=== PATIENT | male | born 1965 | race African-American/Black ===

== ENCOUNTER 2018-12-14 13:05 | Inpatient (IN) | payer OTHER ==
[~2018-12-14] VITALS: Ht 195.6 cm; Wt 123.0 kg
[2018-12-14] VITALS (19 sets, daily range): BP systolic 110–152; BP diastolic 71–92
--- NOTE | 2018-12-14 13:17 | PHYS DOC ---
Adult General HPI HPI Patient is a 53 year old [f__sex] who presents with [] Review of Systems Review of Systems Constitutional: Denies fever or chills [] Eyes: Denies change in visual acuity, redness, or eye pain [] HENT: Denies nasal congestion or sore throat [] Respiratory: Denies cough or shortness of breath [] Cardiovascular: No additional information not addressed in HPI [] GI: Denies abdominal pain, nausea, vomiting, bloody stools or diarrhea [] : Denies dysuria or hematuria [] Musculoskeletal: Denies back pain or joint pain [] Integument: Denies rash or skin lesions [] Neurologic: Denies headache, focal weakness or sensory changes [] Endocrine: Denies polyuria or polydipsia [] All other systems were reviewed and found to be within normal limits, except as documented in this note. Physical Exam Physical Exam Constitutional: Well developed, well nourished, no acute distress, non-toxic appearance. [] HENT: Normocephalic, atraumatic, bilateral external ears normal, oropharynx moist, no oral exudates, nose normal. [] Eyes: PERRLA, EOMI, conjunctiva normal, no discharge. [] Neck: Normal range of motion, no tenderness, supple, no stridor. [] Cardiovascular:Heart rate regular rhythm, no murmur [] Lungs & Thorax: Bilateral breath sounds clear to auscultation [] Abdomen: Bowel sounds normal, soft, no tenderness, no masses, no pulsatile masses. [] Skin: Warm, dry, no erythema, no rash. [] Back: No tenderness, no CVA tenderness. [] Extremities: No tenderness, no cyanosis, no clubbing, ROM intact, no edema. [] Neurologic: Alert and oriented X 3, normal motor function, normal sensory function, no focal deficits noted. [] Psychologic: Affect normal, judgement normal, mood normal. [] Current Patient Data Vital Signs Vital Signs Date Time Temp Pulse Resp B/P (MAP) Pulse Ox O2 Delivery O2 Flow Rate FiO2 12/14/18 13:05 97.8 106 18 195/105 (135) 100 Room Air 97.8 Lab Values Laboratory Tests Test 12/14/18 13:10 White Blood Count 6.1 x10^3/uL (4.0-11.0) Red Blood Count 5.20 x10^6/uL (4.30-5.70) Hemoglobin 15.4 g/dL (13.0-17.5) Hematocrit 46.0 % (39.0-53.0) Mean Corpuscular Volume 89 fL (79-100) Mean Corpuscular Hemoglobin 30 pg (25-35) Mean Corpuscular Hemoglobin Concent 33 g/dL (31-37) Red Cell Distribution Width 14.4 % (11.5-14.5) Platelet Count 189 x10^3/uL (140-400) Neutrophils (%) (Auto) 46 % (31-73) Lymphocytes (%) (Auto) 46 % (24-48) Monocytes (%) (Auto) 7 % (0-9) Eosinophils (%) (Auto) 1 % (0-3) Basophils (%) (Auto) 0 % (0-3) Neutrophils # (Auto) 2.8 x10^3uL (1.8-7.7) Lymphocytes # (Auto) 2.8 x10^3/uL (1.0-4.8) Monocytes # (Auto) 0.4 x10^3/uL (0.0-1.1) Eosinophils # (Auto) 0.1 x10^3/uL (0.0-0.7) Basophils # (Auto) 0.0 x10^3/uL (0.0-0.2) Prothrombin Time 12.6 SEC (11.7-14.0) Prothrombin Time INR 1.0 (0.8-1.1) Sodium Level 145 mmol/L (136-145) Potassium Level 3.4 mmol/L (3.5-5.1) L Chloride Level 103 mmol/L (98-107) Carbon Dioxide Level 30 mmol/L (21-32) Anion Gap 12 (6-14) Blood Urea Nitrogen 20 mg/dL (8-26) Creatinine 1.3 mg/dL (0.7-1.3) Estimated GFR (Cockcroft-Gault) 69.3 BUN/Creatinine Ratio 15 (6-20) Glucose Level 214 mg/dL (70-99) H Calcium Level 9.2 mg/dL (8.5-10.1) Magnesium Level 2.2 mg/dL (1.8-2.4) Total Bilirubin 0.6 mg/dL (0.2-1.0) Aspartate Amino Transferase (AST) 21 U/L (15-37) Alanine Aminotransferase (ALT) 35 U/L (16-63) Alkaline Phosphatase 96 U/L (46-116) Total Protein 7.8 g/dL (6.4-8.2) Albumin 4.0 g/dL (3.4-5.0) Albumin/Globulin Ratio 1.1 (1.0-1.7) Laboratory Tests 12/14/18 13:10 Laboratory Tests 12/14/18 13:10 EKG EKG Dictated by me. EKG at 1306 showed sinus tachycardia at rate of 1:15, normal RI and QT intervals, left anterior fascicular block, left atrial abnormalities, left axis deviation, incomplete right bundle branch block, acute ST elevation in anterior leads,acute STEMI Radiology/Procedures Radiology/Procedures [] Course & Med Decision Making Course & Med Decision Making Pertinent Labs and Imaging studies reviewed. (See chart for details) [] Dragon Disclaimer Dragon Disclaimer This electronic medical record was generated, in whole or in part, using a voice recognition dictation system. Departure Departure Impression: Primary Impression: STEMI (ST elevation myocardial infarction) Disposition: 09 ADMITTED INPATIENT (At 1311) Admitting Physician: Anderson Turner (accepted admission at 1316) Condition: GUARDED Critical Care Time Critical care time was 35 minutes exclusive of procedures. DAE HUSTON MD Dec 14, 2018 13:17
[2018-12-14] MEDS ORDERED: MIDAZOLAM HCL/PF 2 MG/2 ML VIAL. ONE (13:22)
[2018-12-14 13:24] LABS: BASO % 0 % (0-3); EOS # 0.1 x10^3/uL (0.0-0.7); EOS % 1 % (0-3); HEMOGLOBIN 15.4 g/dL (13.0-17.5); LYMPH # 2.8 x10^3/uL (1.0-4.8); LYMPH % 46 % (24-48); MEAN CORPUSCULAR HEMOGLOBIN 30 pg (25-35); MEAN CORPUSCULAR HGB CONC 33 g/dL (31-37); MEAN CORPUSCULAR VOLUME 89 fL (79-100); MONO # 0.4 x10^3/uL (0.0-1.1); MONO % 7 % (0-9); NEUT # 2.8 x10^3uL (1.8-7.7); NEUT % 46 % (31-73); PLATELET COUNT 189 x10^3/uL (140-400); RED CELL DISTRIBUTION WIDTH 14.4 % (11.5-14.5); WHITE BLOOD COUNT 6.1 x10^3/uL (4.0-11.0)
[2018-12-14] MEDS ORDERED: HEPARIN for IV BOLUS 10,000 UNIT/10 ML VIAL. IV ONE (13:24)
[2018-12-14 13:29] LABS: CALCIUM 9.2 mg/dL (8.5-10.1); CREATININE 1.3 mg/dL (0.7-1.3); GFR 69.3; POTASSIUM 3.4 mmol/L (3.5-5.1)
[2018-12-14 13:32] LABS: PROTHROMBIN TIME PATIENT 12.6 SEC (11.7-14.0)
[2018-12-14] MEDS ORDERED: TIROFIBAN 5MG -0.9% NS 100 ML IV ONE (13:34)
[2018-12-14 13:35] LABS: ALBUMIN/GLOBULIN RATIO 1.1 (1.0-1.7); MAGNESIUM 2.2 mg/dL (1.8-2.4); TOTAL BILIRUBIN 0.6 mg/dL (0.2-1.0); TOTAL PROTEIN 7.8 g/dL (6.4-8.2)
[2018-12-14] MEDS ORDERED: MIDAZOLAM HCL/PF 2 MG/2 ML VIAL. IV ONE (13:45)
[2018-12-14] MEDS ORDERED: fentaNYL PF VIAL 100 MCG/2 ML VIAL IV ONE (13:45)
[2018-12-14] MEDS ORDERED: LIDOCAINE 1% Multi-Dose 20 ML VIAL. INJ ONE (13:45)
[2018-12-14] MEDS ORDERED: NITROGLYCERIN 200 MCG/2 ML SYRINGE FOR CATH/VASC LAB. IART ONE (13:45)
[2018-12-14] MEDS ORDERED: IODIXANOL 320 MG/ML 100 ML VIAL. IART ONE (13:45)
[2018-12-14] MEDS ORDERED: PRASUGREL 10 MG TABLET. ONE ×2 (13:49)
[2018-12-14] MEDS ORDERED: PRASUGREL 10 MG TABLET. PO ONE (14:00)
--- NOTE | 2018-12-14 14:00 | EKG ---
[facility] [address] [place] [address] Test Date: 2018-12-14 Test Time: 13:06:42 Pat Name: REMY NEGRETE Department: Room: 102 1 Gender: M Corporate Operations Compliance Manager: : [id number] Requested By: DAE HUSTON Order Number: [id number] Reading MD: Damion Bocanegra MD Measurements Intervals Bee Rate: 115 P: 74 AR: 148 QRS: -33 QRSD: 102 T: 23 QT: 344 QTc: 478 Interpretive Statements SINUS TACHYCARDIA ANTEROLATERAL STEMI Electronically Signed On 12-15-2018 7:04:21 NANOSYSTEMS ENGINEER by Damion Bocanegra MD
[2018-12-14] MEDS: TIROFIBAN 5MG -0.9% NS 100 ML IV PRN ×2 (14:17→15:43)
[2018-12-14] MEDS ORDERED: IODIXANOL 320 MG/ML 100 ML VIAL. ONE (14:42)
[2018-12-14] MEDS ORDERED: LIDOCAINE 1% Multi-Dose 20 ML VIAL. ONE (14:42)
[2018-12-14] MEDS ORDERED: CONTRAST GIVEN. MC PRN (14:45)
--- NOTE | 2018-12-14 14:47 | CARD ---
MR#: [id number] Date of Study: 12/14/2018 Ordering Physician: DAE HUSTON, Referring Physician: AD BENNETT Tech: RT Alpesh (R) APPROVED REPORT Technologist: RT Alpesh (R) Nurse: Meg Braxton R.N. Procedure(s) performed: moderate sedation:67 minutes heart failure: Class 4 HISTORY : The patient is a 53 year-old male with a history of . INDICATION The indication(s) include : STEMI (>0 to less than or equal to 6 hours). [facility] Clinical Frailty Scale [facility] Clinical Frailty Scale: Very Fit Heart Failure Heart Failure: Yes If Yes, Newly Diagnosed: Yes If Yes, HF Type: Systolic If Yes, NYHA Class: Class III PROCEDURE NARRATIVE After explaining the risks and benefits of the procedure and alternatives, informed consent was obtai lenin. The patient was brought electively to the cardiac catheterization lab in a fasting state. A rebel eout was performed confirming the patient's name, date of , procedure, and site of procedure. A ll necessary personnel were wearing the appropriate protective equipment and radiation monitor device s. (See nursing notes for medications administered). The right groin was sterilely prepped and drap ed in the usual fashion. The right groin was infiltrated with 10 mL of 2% lidocaine for subcutaneous anesthesia. A 6 F sheath was inserted into the right femoral artery without difficulty. Right and left coronary angiography was performed using a JR4 and JL4 catheter. Left ventricular end diastolic pressure was obtained with a pigtail catheter and pullback was performed after left ventriculography . All catheter exchanges and advancements were performed over a guidewire. At case completion the r ight femoral sheath was removed and hemostasis was achieved with an Angioseal Device after limited fe moral angiography confirmed adequate vessel size and anatomy. There were no acute complications. HEMODYNAMICS: AO: 177/83 LVEDP 21 mm Hg No gradient on LV to aortic pullback. LEFT VENTRICULOGRAM: Deferred due to contrast load. CORONARY ANGIOGRAPHY: LM is a large caliber ectactic vessel with normal angiographic appearance. LAD is a large caliber vessel with proximal 40-50% stenosis, followed by a 100% occlusion at the 1st diagonal in the mid segment. Ramus is a moderate caliber ostially bifuracting vessel with mild luminal irregularities. LCx is a moderate caliber non-dominant vessel with a mid 90% stenosis extending into the LPL1 RCA is a large caliber dominant vessel with mild diffuse irregularities of up to 30% RPDA is a moderate caliber vessels with mild luminal irregularities. INTERVENTIONAL TECHNIQUE: PCI of the LAD Based upon the EKG, presenting symptoms and angiographic findings an interevntion was performed. Hepa rin/Tirofiban were used for anticoagulation. Through a 6fr EBU 4.0 guide catheter, 0.014'' Prowater w tobias was advanced to the distal LAD. Next, PTCA was performed with a 3.0/15 balloon and then stented w ith a 4.0/26 ALVARO at 14 dana. Final post-PCI angiography revealed ALEAH 3 flow and 0% residual stenosis. INTERVENTIONAL TECHNIQUE: PCI OF THE LCX Due to persistent lateral wall EKG changes, an intervention was also performed on the Lcx. The prowat er wire was redirected to the LPL1, the lesion was angioplasted with a 4.0/20 mm balloon and then christianne nted with a 4.0/22 ALVARO at 14 dana and post-dilated with 4.0 NC balloon at 18 dana. Final post-PCI angio graphy demonstrated excellent stent expansion with ALEAH 3 flow and 0% residual stenosis. CLOSURE: The groin sheath was removed and hemostasis was achieved with an Angioseal device after limited angio gram confirmed adequate sheath entry. The patient received Prasugrel 60mg at case completion. Conclusion 1. Anterolateral STEMI 2. Successful PCI of the LAD with implantation of a 4.0/26 Resolute ALVARO 3. Successful PCI of the LCx with implantation of a 4.0/22 Resolute ALVARO 4. Elevated left sided filling pressures. LVEDP 21 mm Hg. Recommendations ASA 81mg daily Prasugrel 10mg daily High dose statin therapy Cardiac rehab referral Signed by : Damion Bocanegra, Electronically Approved : 12/14/2018 14:47:12
[2018-12-14] MEDS ORDERED: HYDR-2145 PO (15:16)
--- NOTE | 2018-12-14 15:44 | NUR ---
Aggrastat and Effient given in laboratory asst prior to patient transfer to ICU
--- NOTE | 2018-12-14 15:45 | HP ---
ADMIT DATE: 12/14/2018 CHIEF COMPLAINT: Chest pain. HISTORY OF PRESENT ILLNESS: The patient is a pleasant middle-aged male, who presented to the ER with chest pain. He was in STEMI activation. He was taken emergently to the assistant laboratory director and now has gotten 2 stents, one to the LAD and one to the circumflex. He is now being examined in the ICU where he is doing a little bit better. Rates his symptoms prior to the procedure at 10/10, describes it as agonizing. His pain is now much decreased. He is doing much better. PAST MEDICAL HISTORY: Hypertension, possible noncompliance. ALLERGIES: None. FAMILY HISTORY: Coronary artery disease. SOCIAL HISTORY: He works at [employer]. He smokes cigars, but does not drink or take drugs. He is trying to quit smoking. MEDICATIONS: Reviewed, please refer to the MRAD. REVIEW OF SYSTEMS: GENERAL: No history of weight change, weakness or fevers. SKIN: No bruising, hair changes or rashes. EYES: No blurred, double or loss of vision. NOSE AND THROAT: No history of nosebleeds, hoarseness or sore throat. HEART: He complains of chest pain, although it is improved after the cath. LUNGS: Denies cough, hemoptysis, wheezing or shortness of breath. GASTROINTESTINAL: Denies changes in appetite, nausea, vomiting, diarrhea or constipation. GENITOURINARY: No history of frequency, urgency, hesitancy or nocturia. NEUROLOGIC: Denies history of numbness, tingling, tremor or weakness. PSYCHIATRIC: No history of panic, anxiety or depression. ENDOCRINE: No history of heat or cold intolerance, polyuria or polydipsia. EXTREMITIES: Denies muscle weakness, joint pain, pain on walking or stiffness. PHYSICAL EXAMINATION: VITAL SIGNS: Temperature 98, pulse 80, respirations 16, blood pressure 144/80, O2 sat 99% on room air. GENERAL: He is alert, cooperative. HEART: Normal S1, S2. LUNGS: Clear. ABDOMEN: Soft. EXTREMITIES: No edema. SKIN: No rash. ENDOCRINE: No thyromegaly. LYMPHATICS: No cervical nodes. HEMATOPOIETIC: No bruising. LABORATORY DATA: Hematology is normal. Electrolytes, potassium is low at 3.4. Troponin was 0.081. ASSESSMENT AND PLAN: Acute myocardial infarction, status post intervention with 2 new stents and an incidental finding of hypokalemia, we have replaced his potassium. ICU monitoring, trend enzymes, serial EKGs. We have Cardiology on board. We certainly agree and appreciate the rapid intervention. PROGNOSIS: Guarded. TOTAL TIME: 31 minutes. AD BENNETT DO DR: JERRI/sarah JOB#: [id number] / [id number]
--- NOTE | 2018-12-14 16:12 | PDOC2 ---
CARDIOLOGY CONSULT NOTE CHEIF COMPLAINT: Chest pain HPI: 53 y.o male presenting with acute chest pain. He was noted to have anterior STEMI and taken urgently to the manager cardiac cath. See cath report for full details. Prior to this he was working at [employer] and had no problems. Denies any prior cardiac disease. PMHX: Prior rare cigar use HTN SOCHX: . Works at [employer]. FAMHX: +CAD CURRENT MEDS: Current Medications Medications (Trade) Dose Ordered Sig/Carlitos Start Time Stop Time Status Last Admin Dose Admin Fentanyl Citrate (Fentanyl 2ml Vial) 100 mcg 1X ONCE 12/14/18 13:45 12/14/18 13:50 DC 12/14/18 14:17 75 MCG Heparin Sodium (Porcine) (Heparin Sodium) 8,000 unit 1X ONCE 12/14/18 13:24 12/14/18 13:50 DC 12/14/18 14:19 8,000 UNIT Heparin Sodium/ Sodium Chloride 1,000 ml @ As Directed STK-MED ONCE 12/14/18 14:42 12/14/18 14:43 DC Heparin Sodium/ Sodium Chloride (HEPARIN for ARTERIAL LINE FLUSH) 1,000 unit 1X ONCE 12/14/18 13:45 12/14/18 13:50 DC 12/14/18 14:18 1,000 UNIT Info (CONTRAST GIVEN -- Rx MONITORING) 1 each PRN DAILY PRN 12/14/18 14:45 12/16/18 14:44 Iodixanol (Visipaque 320) 100 ml STK-MED ONCE 12/14/18 14:42 12/14/18 14:43 DC Lidocaine HCl (Lidocaine 1% 20ml Vial) 20 ml STK-MED ONCE 12/14/18 14:42 12/14/18 14:43 DC Midazolam HCl (Versed) 2 mg 1X ONCE 12/14/18 13:45 12/14/18 13:50 DC 12/14/18 14:17 3 MG Nitroglycerin (Nitroglycerin) 200 mcg 1X ONCE 12/14/18 13:45 12/14/18 13:50 DC 12/14/18 14:18 200 MCG Prasugrel (Effient) 60 mg 1X ONCE 12/14/18 14:00 12/14/18 14:01 DC 12/14/18 14:00 60 MG Tirofiban/Sodium Chloride 100 ml @ 0 mls/hr CONT PRN 12/14/18 13:38 12/15/18 07:37 12/14/18 14:17 21.3 MLS/HR ALLERGIES: Allergies Coded Allergies Type Severity Reaction Last Updated Verified No Known Drug Allergies 12/14/18 No ROS: Negative for 07/26 systems unless otherwise PHYSICAL EXAM: Vital Signs: Vital Signs Date Time Temp Pulse Resp B/P (MAP) Pulse Ox O2 Delivery O2 Flow Rate FiO2 12/14/18 14:40 98.4 84 16 144/80 (101) 99 Room Air 98.4 12/14/18 14:17 2.0 Physical Exam: GEN.: No apparent distress. Alert and oriented. HEENT: Head is normocephalic, atraumatic NECK: Supple. LUNGS: Clear to auscultation. HEART: RRR, S1, S2 present. Peripheral pulses intact ABDOMEN: Soft, nontender. Positive bowel sounds. EXTREMITIES: Without any cyanosis. NEUROLOGIC: Normal speech, normal tone PSYCHIATRIC: Normal affect, normal mood. SKIN: No ulcerations DIAGNOSTIC TESTING: EKG: Anterior STEMI Trop 0.081 Lab Laboratory Tests Test 12/14/18 13:10 White Blood Count 6.1 x10^3/uL (4.0-11.0) Red Blood Count 5.20 x10^6/uL (4.30-5.70) Hemoglobin 15.4 g/dL (13.0-17.5) Hematocrit 46.0 % (39.0-53.0) Mean Corpuscular Volume 89 fL (79-100) Mean Corpuscular Hemoglobin 30 pg (25-35) Mean Corpuscular Hemoglobin Concent 33 g/dL (31-37) Red Cell Distribution Width 14.4 % (11.5-14.5) Platelet Count 189 x10^3/uL (140-400) Neutrophils (%) (Auto) 46 % (31-73) Lymphocytes (%) (Auto) 46 % (24-48) Monocytes (%) (Auto) 7 % (0-9) Eosinophils (%) (Auto) 1 % (0-3) Basophils (%) (Auto) 0 % (0-3) Neutrophils # (Auto) 2.8 x10^3uL (1.8-7.7) Lymphocytes # (Auto) 2.8 x10^3/uL (1.0-4.8) Monocytes # (Auto) 0.4 x10^3/uL (0.0-1.1) Eosinophils # (Auto) 0.1 x10^3/uL (0.0-0.7) Basophils # (Auto) 0.0 x10^3/uL (0.0-0.2) Prothrombin Time 12.6 SEC (11.7-14.0) Prothromb Time International Ratio 1.0 (0.8-1.1) Sodium Level 145 mmol/L (136-145) Potassium Level 3.4 mmol/L (3.5-5.1) L Chloride Level 103 mmol/L (98-107) Carbon Dioxide Level 30 mmol/L (21-32) Anion Gap 12 (6-14) Blood Urea Nitrogen 20 mg/dL (8-26) Creatinine 1.3 mg/dL (0.7-1.3) Estimated GFR (Cockcroft-Gault) 69.3 BUN/Creatinine Ratio 15 (6-20) Glucose Level 214 mg/dL (70-99) H Calcium Level 9.2 mg/dL (8.5-10.1) Total Bilirubin 0.6 mg/dL (0.2-1.0) Aspartate Amino Transf (AST/SGOT) 21 U/L (15-37) Alkaline Phosphatase 96 U/L (46-116) Creatine Kinase 364 U/L (39-308) H Creatine Kinase MB (Mass) 6.3 ng/mL (0.0-3.6) H Creatine Kinase MB Relative Index 1.7 % (0-4) Total Protein 7.8 g/dL (6.4-8.2) Albumin 4.0 g/dL (3.4-5.0) Albumin/Globulin Ratio 1.1 (1.0-1.7) ASSESSMENT: 1. Anterior STEMI 2. HTN PLAN: 1. PCI of the LAD and LCx successful 2. Continue asa, prasugrel 3. Check lipids, echo and continue statin therapy KENN SALMON MD Dec 14, 2018 16:12
[2018-12-14] MEDS ORDERED: IPRATRPIUM/ALBUTEROL 0.5/2.5MG 3 ML NEBU. NEB SCH (17:00)
[2018-12-14] MEDS ORDERED: AMLO5TAB10 PO (19:18)
[2018-12-14] MEDS: IPRATRPIUM/ALBUTEROL 0.5/2.5MG 3 ML NEBU. NEB SCH (19:52)
[2018-12-14] MEDS: ATORVASTATIN CALCIUM 40 MG TABLET. PO SCH (20:43)
--- NOTE | 2018-12-14 23:27 | RAD ---
PORTABLE CHEST 1V History: Chest pain Comparison: None. Findings: AP portable view of the chest is submitted. There is no infiltrate, pleural fluid, pneumothorax. Heart size is within normal limits given technique. Impression: 1. No acute radiographic abnormality is identified. Electronically signed by: Lb Whyte MD (12/14/2018 11:24 PM) [facility]
[2018-12-15] VITALS (14 sets, daily range): BP systolic 111–156; BP diastolic 58–85
[2018-12-15 06:16] LABS: CHOLESTEROL/HDL RATIO 3.8
[2018-12-15] MEDS: IPRATRPIUM/ALBUTEROL 0.5/2.5MG 3 ML NEBU. NEB SCH ×4 (07:44→20:55)
--- NOTE | 2018-12-15 08:39 | PDOC ---
ZACK FOOTE FINANCIAL DATA ANALYST 12/15/18 0839: CARDIO Progress Notes Date and Time Date of Service 12/15/2018 Time of Evaluation 0820 Subjective Subjective: No Chest Pain, No shortness of breath, No Palpitations Vitals Vitals Vital Signs Date Time Temp Pulse Resp B/P (MAP) Pulse Ox O2 Delivery O2 Flow Rate FiO2 12/15/18 08:09 96.8 69 18 135/85 (102) 98 Room Air 96.8 12/14/18 14:17 2.0 Weight Weight [ ] Input and Output Intake and Output Intake and Output 12/15/18 07:00 Intake Total 520 ml Output Total 1400 ml Balance -880 ml Intake Oral 520 ml Output Urine Total 1400 ml # Voids 3 Laboratory Labs Laboratory Tests Test 12/14/18 13:10 12/15/18 04:30 White Blood Count 6.1 x10^3/uL (4.0-11.0) Red Blood Count 5.20 x10^6/uL (4.30-5.70) Hemoglobin 15.4 g/dL (13.0-17.5) Hematocrit 46.0 % (39.0-53.0) Mean Corpuscular Volume 89 fL (79-100) Mean Corpuscular Hemoglobin 30 pg (25-35) Mean Corpuscular Hemoglobin Concent 33 g/dL (31-37) Red Cell Distribution Width 14.4 % (11.5-14.5) Platelet Count 189 x10^3/uL (140-400) Neutrophils (%) (Auto) 46 % (31-73) Lymphocytes (%) (Auto) 46 % (24-48) Monocytes (%) (Auto) 7 % (0-9) Eosinophils (%) (Auto) 1 % (0-3) Basophils (%) (Auto) 0 % (0-3) Neutrophils # (Auto) 2.8 x10^3uL (1.8-7.7) Lymphocytes # (Auto) 2.8 x10^3/uL (1.0-4.8) Monocytes # (Auto) 0.4 x10^3/uL (0.0-1.1) Eosinophils # (Auto) 0.1 x10^3/uL (0.0-0.7) Basophils # (Auto) 0.0 x10^3/uL (0.0-0.2) Prothrombin Time 12.6 SEC (11.7-14.0) Prothromb Time International Ratio 1.0 (0.8-1.1) Sodium Level 145 mmol/L (136-145) Potassium Level 3.4 mmol/L (3.5-5.1) Chloride Level 103 mmol/L (98-107) Carbon Dioxide Level 30 mmol/L (21-32) Anion Gap 12 (6-14) Blood Urea Nitrogen 20 mg/dL (8-26) Creatinine 1.3 mg/dL (0.7-1.3) Estimated GFR (Cockcroft-Gault) 69.3 BUN/Creatinine Ratio 15 (6-20) Glucose Level 214 mg/dL (70-99) Calcium Level 9.2 mg/dL (8.5-10.1) Magnesium Level 2.2 mg/dL (1.8-2.4) Total Bilirubin 0.6 mg/dL (0.2-1.0) Aspartate Amino Transf (AST/SGOT) 21 U/L (15-37) Alanine Aminotransferase (ALT/SGPT) 35 U/L (16-63) Alkaline Phosphatase 96 U/L (46-116) Creatine Kinase 364 U/L (39-308) Creatine Kinase MB (Mass) 6.3 ng/mL (0.0-3.6) Creatine Kinase MB Relative Index 1.7 % (0-4) Troponin I Quantitative 0.081 ng/mL (0.000-0.055) AE-[id number]-Type Natriuretic Peptide 27 pg/mL (0-124) Total Protein 7.8 g/dL (6.4-8.2) Albumin 4.0 g/dL (3.4-5.0) Albumin/Globulin Ratio 1.1 (1.0-1.7) Triglycerides Level 42 mg/dL (0-150) Cholesterol Level 211 mg/dL (0-200) LDL Cholesterol, Calculated 148 mg/dL (0-100) VLDL Cholesterol, Calculated 8 mg/dL (0-40) Non-HDL Cholesterol Calculated 156 mg/dL (0-129) HDL Cholesterol 55 mg/dL (40-60) Cholesterol/HDL Ratio 3.8 Physical Exam HEENT: Neck Supple W Full Motion Chest: Symmetric LUNGS: Clear to Auscultation Heart: S1S2, RRR (SR) Abdomen: Soft N/T Extremities: No Edema, No Calf Tenderness Neurology: alert, oriented, follow commands Other Exams Right groin arteriotomy site, soft, intact, no erythema or swelling. Neurovascular status to bilateral LE intact. Assessment Assessment 1. Anterolateral STEMI: S/P PCI/ALVARO to LAD/LCx 2. Arrhythmia: asymptomatic bursts of NSVT and narrow complex 3. HTN: controlled 4. HLP 5. Obesity Recommendations 1. ASA, plavix, lipitor 2. BP well controlled, continue BB. ACEi or ARB to follow pending BP trend and TTE 3. Dietitian consult. wt loss. 4. Follow up in 4 weeks. anticipate DC tomorrow. Encouraged cardiac rehab 5. Check BMP and Mg. KENN SALMON MD 12/15/18 1031: CARDIO Progress Notes Plan Plan Pt. seen and examined. Agree with above LCAC OPERATOR note. No acute events overnight. No chest pain. Normal cardiac exam echo pending. continue present meds. Will DC tomorrow. Ok to transfer to floor. ZACK FOOTE APRN Dec 15, 2018 08:39 KENN SALMON MD Dec 15, 2018 10:31
[2018-12-15 08:51] LABS: CALCIUM 8.6 mg/dL (8.5-10.1); CREATININE 0.9 mg/dL (0.7-1.3); MAGNESIUM 2.3 mg/dL (1.8-2.4); POTASSIUM 3.1 mmol/L (3.5-5.1)
[2018-12-15] MEDS: ASPIRIN ENTERIC COATED 81 MG TABLET.DR. PO SCH (09:10)
[2018-12-15] MEDS: METOPROLOL TART IMMED RELEASE 25 MG TABLET. PO SCH ×2 (09:11→19:48)
[2018-12-15] MEDS: PRASUGREL 10 MG TABLET. PO SCH (09:11)
--- NOTE | 2018-12-15 09:51 | PDOC ---
PROGRESS NOTES Chief Complaint Chief Complaint Acute myocardial infarction s/p stent in left anterior descending and circumflex Hypokalemia Angina History of Present Illness History of Present Illness Mr. Vega presented with chest pain, had two stents placed. Patient is awake and resting comfortable in bed today. He has no new complaints. He was seen by [facility]PL[facility]PER[facility], possible discharge tomorrow if stable. Vitals Vitals Vital Signs Date Time Temp Pulse Resp B/P (MAP) Pulse Ox O2 Delivery O2 Flow Rate FiO2 12/15/18 09:11 77 114/60 12/15/18 09:00 96.7 18 95 Room Air 96.7 12/14/18 14:17 2.0 Physical Exam General: Alert, Oriented X3, No acute distress Heart: Regular rate, No murmurs Lungs: Clear Abdomen: Normal bowel sounds, No tenderness Extremities: No clubbing, No cyanosis, No edema Skin: No rashes, No significant lesion Labs LABS Laboratory Tests Test 12/14/18 13:10 12/15/18 04:30 White Blood Count 6.1 x10^3/uL (4.0-11.0) Red Blood Count 5.20 x10^6/uL (4.30-5.70) Hemoglobin 15.4 g/dL (13.0-17.5) Hematocrit 46.0 % (39.0-53.0) Mean Corpuscular Volume 89 fL (79-100) Mean Corpuscular Hemoglobin 30 pg (25-35) Mean Corpuscular Hemoglobin Concent 33 g/dL (31-37) Red Cell Distribution Width 14.4 % (11.5-14.5) Platelet Count 189 x10^3/uL (140-400) Neutrophils (%) (Auto) 46 % (31-73) Lymphocytes (%) (Auto) 46 % (24-48) Monocytes (%) (Auto) 7 % (0-9) Eosinophils (%) (Auto) 1 % (0-3) Basophils (%) (Auto) 0 % (0-3) Neutrophils # (Auto) 2.8 x10^3uL (1.8-7.7) Lymphocytes # (Auto) 2.8 x10^3/uL (1.0-4.8) Monocytes # (Auto) 0.4 x10^3/uL (0.0-1.1) Eosinophils # (Auto) 0.1 x10^3/uL (0.0-0.7) Basophils # (Auto) 0.0 x10^3/uL (0.0-0.2) Prothrombin Time 12.6 SEC (11.7-14.0) Prothromb Time International Ratio 1.0 (0.8-1.1) Sodium Level 145 mmol/L (136-145) 141 mmol/L (136-145) Potassium Level 3.4 mmol/L (3.5-5.1) 3.1 mmol/L (3.5-5.1) Chloride Level 103 mmol/L (98-107) 102 mmol/L (98-107) Carbon Dioxide Level 30 mmol/L (21-32) 26 mmol/L (21-32) Anion Gap 12 (6-14) 13 (6-14) Blood Urea Nitrogen 20 mg/dL (8-26) 14 mg/dL (8-26) Creatinine 1.3 mg/dL (0.7-1.3) 0.9 mg/dL (0.7-1.3) Estimated GFR (Cockcroft-Gault) 69.3 106.0 BUN/Creatinine Ratio 15 (6-20) Glucose Level 214 mg/dL (70-99) 141 mg/dL (70-99) Calcium Level 9.2 mg/dL (8.5-10.1) 8.6 mg/dL (8.5-10.1) Magnesium Level 2.2 mg/dL (1.8-2.4) 2.3 mg/dL (1.8-2.4) Total Bilirubin 0.6 mg/dL (0.2-1.0) Aspartate Amino Transf (AST/SGOT) 21 U/L (15-37) Alanine Aminotransferase (ALT/SGPT) 35 U/L (16-63) Alkaline Phosphatase 96 U/L (46-116) Creatine Kinase 364 U/L (39-308) Creatine Kinase MB (Mass) 6.3 ng/mL (0.0-3.6) Creatine Kinase MB Relative Index 1.7 % (0-4) Troponin I Quantitative 0.081 ng/mL (0.000-0.055) BX-Pfo-Q-Type Natriuretic Peptide 27 pg/mL (0-124) Total Protein 7.8 g/dL (6.4-8.2) Albumin 4.0 g/dL (3.4-5.0) Albumin/Globulin Ratio 1.1 (1.0-1.7) Triglycerides Level 42 mg/dL (0-150) Cholesterol Level 211 mg/dL (0-200) LDL Cholesterol, Calculated 148 mg/dL (0-100) VLDL Cholesterol, Calculated 8 mg/dL (0-40) Non-HDL Cholesterol Calculated 156 mg/dL (0-129) HDL Cholesterol 55 mg/dL (40-60) Cholesterol/HDL Ratio 3.8 Thyroid Stimulating Hormone (TSH) 0.860 uIU/mL (0.358-3.74) Review of Systems Review of Systems Denies chest pain Denies shortness of breath Assessment and Plan Assessmemt and Plan Assessment: Acute myocardial infarction s/p stent in left anterior descending and circumflex Hypokalemia Angina Plan: Possible discharge tomorrow if stable Continue to monitor in the ICU Continue cardiac diet Continue wound care Consult PT/OT Appreciate Cardiology input Continue home meds Recheck labs tomorrow morning Continue statin, aspirin, prasugrel per Cardiology Comment Review of Relevant I have reviewed the following items josee (where applicable) has been applied. Labs Laboratory Tests Test 12/14/18 13:10 12/15/18 04:30 White Blood Count 6.1 x10^3/uL (4.0-11.0) Red Blood Count 5.20 x10^6/uL (4.30-5.70) Hemoglobin 15.4 g/dL (13.0-17.5) Hematocrit 46.0 % (39.0-53.0) Mean Corpuscular Volume 89 fL (79-100) Mean Corpuscular Hemoglobin 30 pg (25-35) Mean Corpuscular Hemoglobin Concent 33 g/dL (31-37) Red Cell Distribution Width 14.4 % (11.5-14.5) Platelet Count 189 x10^3/uL (140-400) Neutrophils (%) (Auto) 46 % (31-73) Lymphocytes (%) (Auto) 46 % (24-48) Monocytes (%) (Auto) 7 % (0-9) Eosinophils (%) (Auto) 1 % (0-3) Basophils (%) (Auto) 0 % (0-3) Neutrophils # (Auto) 2.8 x10^3uL (1.8-7.7) Lymphocytes # (Auto) 2.8 x10^3/uL (1.0-4.8) Monocytes # (Auto) 0.4 x10^3/uL (0.0-1.1) Eosinophils # (Auto) 0.1 x10^3/uL (0.0-0.7) Basophils # (Auto) 0.0 x10^3/uL (0.0-0.2) Prothrombin Time 12.6 SEC (11.7-14.0) Prothromb Time International Ratio 1.0 (0.8-1.1) Sodium Level 145 mmol/L (136-145) 141 mmol/L (136-145) Potassium Level 3.4 mmol/L (3.5-5.1) 3.1 mmol/L (3.5-5.1) Chloride Level 103 mmol/L (98-107) 102 mmol/L (98-107) Carbon Dioxide Level 30 mmol/L (21-32) 26 mmol/L (21-32) Anion Gap 12 (6-14) 13 (6-14) Blood Urea Nitrogen 20 mg/dL (8-26) 14 mg/dL (8-26) Creatinine 1.3 mg/dL (0.7-1.3) 0.9 mg/dL (0.7-1.3) Estimated GFR (Cockcroft-Gault) 69.3 106.0 BUN/Creatinine Ratio 15 (6-20) Glucose Level 214 mg/dL (70-99) 141 mg/dL (70-99) Calcium Level 9.2 mg/dL (8.5-10.1) 8.6 mg/dL (8.5-10.1) Magnesium Level 2.2 mg/dL (1.8-2.4) 2.3 mg/dL (1.8-2.4) Total Bilirubin 0.6 mg/dL (0.2-1.0) Aspartate Amino Transf (AST/SGOT) 21 U/L (15-37) Alanine Aminotransferase (ALT/SGPT) 35 U/L (16-63) Alkaline Phosphatase 96 U/L (46-116) Creatine Kinase 364 U/L (39-308) Creatine Kinase MB (Mass) 6.3 ng/mL (0.0-3.6) Creatine Kinase MB Relative Index 1.7 % (0-4) Troponin I Quantitative 0.081 ng/mL (0.000-0.055) NZ-Ngx-S-Type Natriuretic Peptide 27 pg/mL (0-124) Total Protein 7.8 g/dL (6.4-8.2) Albumin 4.0 g/dL (3.4-5.0) Albumin/Globulin Ratio 1.1 (1.0-1.7) Triglycerides Level 42 mg/dL (0-150) Cholesterol Level 211 mg/dL (0-200) LDL Cholesterol, Calculated 148 mg/dL (0-100) VLDL Cholesterol, Calculated 8 mg/dL (0-40) Non-HDL Cholesterol Calculated 156 mg/dL (0-129) HDL Cholesterol 55 mg/dL (40-60) Cholesterol/HDL Ratio 3.8 Thyroid Stimulating Hormone (TSH) 0.860 uIU/mL (0.358-3.74) Laboratory Tests Test 12/14/18 13:10 12/15/18 04:30 White Blood Count 6.1 x10^3/uL (4.0-11.0) Red Blood Count 5.20 x10^6/uL (4.30-5.70) Hemoglobin 15.4 g/dL (13.0-17.5) Hematocrit 46.0 % (39.0-53.0) Mean Corpuscular Volume 89 fL (79-100) Mean Corpuscular Hemoglobin 30 pg (25-35) Mean Corpuscular Hemoglobin Concent 33 g/dL (31-37) Red Cell Distribution Width 14.4 % (11.5-14.5) Platelet Count 189 x10^3/uL (140-400) Neutrophils (%) (Auto) 46 % (31-73) Lymphocytes (%) (Auto) 46 % (24-48) Monocytes (%) (Auto) 7 % (0-9) Eosinophils (%) (Auto) 1 % (0-3) Basophils (%) (Auto) 0 % (0-3) Neutrophils # (Auto) 2.8 x10^3uL (1.8-7.7) Lymphocytes # (Auto) 2.8 x10^3/uL (1.0-4.8) Monocytes # (Auto) 0.4 x10^3/uL (0.0-1.1) Eosinophils # (Auto) 0.1 x10^3/uL (0.0-0.7) Basophils # (Auto) 0.0 x10^3/uL (0.0-0.2) Prothrombin Time 12.6 SEC (11.7-14.0) Prothromb Time International Ratio 1.0 (0.8-1.1) Sodium Level 145 mmol/L (136-145) 141 mmol/L (136-145) Potassium Level 3.4 mmol/L (3.5-5.1) 3.1 mmol/L (3.5-5.1) Chloride Level 103 mmol/L (98-107) 102 mmol/L (98-107) Carbon Dioxide Level 30 mmol/L (21-32) 26 mmol/L (21-32) Anion Gap 12 (6-14) 13 (6-14) Blood Urea Nitrogen 20 mg/dL (8-26) 14 mg/dL (8-26) Creatinine 1.3 mg/dL (0.7-1.3) 0.9 mg/dL (0.7-1.3) Estimated GFR (Cockcroft-Gault) 69.3 106.0 BUN/Creatinine Ratio 15 (6-20) Glucose Level 214 mg/dL (70-99) 141 mg/dL (70-99) Calcium Level 9.2 mg/dL (8.5-10.1) 8.6 mg/dL (8.5-10.1) Magnesium Level 2.2 mg/dL (1.8-2.4) 2.3 mg/dL (1.8-2.4) Total Bilirubin 0.6 mg/dL (0.2-1.0) Aspartate Amino Transf (AST/SGOT) 21 U/L (15-37) Alanine Aminotransferase (ALT/SGPT) 35 U/L (16-63) Alkaline Phosphatase 96 U/L (46-116) Creatine Kinase 364 U/L (39-308) Creatine Kinase MB (Mass) 6.3 ng/mL (0.0-3.6) Creatine Kinase MB Relative Index 1.7 % (0-4) Troponin I Quantitative 0.081 ng/mL (0.000-0.055) WM-Asb-E-Type Natriuretic Peptide 27 pg/mL (0-124) Total Protein 7.8 g/dL (6.4-8.2) Albumin 4.0 g/dL (3.4-5.0) Albumin/Globulin Ratio 1.1 (1.0-1.7) Triglycerides Level 42 mg/dL (0-150) Cholesterol Level 211 mg/dL (0-200) LDL Cholesterol, Calculated 148 mg/dL (0-100) VLDL Cholesterol, Calculated 8 mg/dL (0-40) Non-HDL Cholesterol Calculated 156 mg/dL (0-129) HDL Cholesterol 55 mg/dL (40-60) Cholesterol/HDL Ratio 3.8 Thyroid Stimulating Hormone (TSH) 0.860 uIU/mL (0.358-3.74) Medications Current Medications Midazolam HCl (Versed) 2 mg STK-MED ONCE .ROUTE ; Start 12/14/18 at 13:22; Stop 12/14/18 at 13:23; Status DC Tirofiban/Sodium Chloride 100 ml @ As Directed STK-MED ONCE IV ; Start 12/14/18 at 13:34; Stop 12/14/18 at 13:35; Status DC Nitroglycerin (Nitroglycerin) 200 mcg 1X ONCE IART Last administered on 14:18; Start 12/14/18 at 13:45; Stop 12/14/18 at 13:50; Status DC Heparin Sodium/ Sodium Chloride (HEPARIN for ARTERIAL LINE FLUSH) 1,000 unit 1X ONCE IART Last administered on 12/14/18 14:18; Start 12/14/18 at 13:45; Stop 12/14/18 at 13:50; Status DC Heparin Sodium/ Sodium Chloride (HEPARIN for ARTERIAL LINE FLUSH) 1,000 unit 1X ONCE IART Last administered on 12/14/18 14:18; Start 12/14/18 at 13:45; Stop 12/14/18 at 13:50; Status DC Midazolam HCl (Versed) 2 mg 1X ONCE IV Last administered on 12/14/18 14:17; Start 12/14/18 at 13:45; Stop 12/14/18 at 13:50; Status DC Fentanyl Citrate (Fentanyl 2ml Vial) 100 mcg 1X ONCE IV Last administered on 14:17; Start 12/14/18 at 13:45; Stop 12/14/18 at 13:50; Status DC Iodixanol (Visipaque 320) 100 ml 1X ONCE IART Last administered on 12/14/18at 14 :18; Start 12/14/18 at 13:45; Stop 12/14/18 at 13:50; Status DC Heparin Sodium (Porcine) (Heparin Sodium) 8,000 unit 1X ONCE IV Last administered on 12/14/18at 14:19; Start 12/14/18 at 13:24; Stop 12/14/18 at 13:50; Status DC Lidocaine HCl (Lidocaine 1% 20ml Vial) 20 ml 1X ONCE INJ Last administered on 12/14/18at 14:19; Start 12/14/18 at 13:45; Stop 12/14/18 at 13:50; Status DC Tirofiban/Sodium Chloride 100 ml @ 0 mls/hr CONT PRN IV PER PROTOCOL Last administered on 12/14/18at 14:17; Start 12/14/18 at 13:38; Stop 12/15/18 at 07:37; Status DC Prasugrel (Effient) 10 mg STK-MED ONCE .ROUTE ; Start 12/14/18 at 13:49; Stop 12/14/18 at 13:50; Status DC Prasugrel (Effient) 10 mg STK-MED ONCE .ROUTE ; Start 12/14/18 at 13:49; Stop 12/14/18 at 13:50; Status DC Prasugrel (Effient) 60 mg 1X ONCE PO Last administered on 12/14/18at 14:00; Start 12/14/18 at 14:00; Stop 12/14/18 at 14:01; Status DC Info (CONTRAST GIVEN -- Rx MONITORING) 1 each PRN DAILY PRN MC SEE COMMENTS; Start 12/14/18 at 14:45; Stop 12/16/18 at 14:44 Iodixanol (Visipaque 320) 100 ml STK-MED ONCE .ROUTE ; Start 12/14/18 at 14:42; Stop 12/14/18 at 14:43; Status DC Lidocaine HCl (Lidocaine 1% 20ml Vial) 20 ml STK-MED ONCE .ROUTE ; Start at 14:42; Stop 12/14/18 at 14:43; Status DC Heparin Sodium/ Sodium Chloride 1,000 ml @ As Directed STK-MED ONCE .ROUTE ; Start 12/14/18 at 14:42; Stop 12/14/18 at 14:43; Status DC Aspirin (Ecotrin) 81 mg DAILYWBKFT PO Last administered on 12/15/18at 09:10; Start 12/15/18 at 08:00 Prasugrel (Effient) 10 mg DAILYWBKFT PO Last administered on 12/15/18at 09:11; Start 12/15/18 at 08:00 Atorvastatin Calcium (Lipitor) 40 mg QHS PO Last administered on 12/14/18at 20:43 ; Start 12/14/18 at 21:00 Metoprolol Tartrate (Lopressor) 25 mg BID PO Last administered on 12/15/18at 09: 11; Start 12/15/18 at 09:00 Albuterol/ Ipratropium (Duoneb) 3 ml Q4H NEB ; Start 12/14/18 at 17:00; Stop 12/14 at 17:32; Status DC Albuterol/ Ipratropium (Duoneb) 3 ml RTQID NEB Last administered on 12/15/18at 07 :44; Start 12/14/18 at 20:00 Active Scripts Active Reported Amlodipine Besylate 5 Mg Tablet 5 Mg PO DAILY Hydrochlorothiazide Tablet (Hydrochlorothiazide) 25 Mg Tablet 25 Mg PO DAILY Vitals/I & O Vital Sign - Last 24 Hours 12/14/18 12/14/18 12/14/18 12/14/18 13:05 14:17 14:25 14:40 Temp 97.8 98.4 97.8 98.4 Pulse 106 81 84 Resp 18 24 21 16 B/P (MAP) 195/105 (135) 144/80 (101) Pulse Ox 100 100 99 99 O2 Delivery Room Air Nasal Cannula Room Air Room Air O2 Flow Rate 2.0 12/14/18 12/14/18 12/14/18 12/14/18 14:55 15:05 15:15 15:30 Pulse 80 83 80 80 Resp 12 16 16 16 B/P (MAP) 132/76 (94) 135/79 (97) 135/79 (97) 137/74 (95) Pulse Ox 98 99 98 100 O2 Delivery Room Air Room Air Room Air Room Air 12/14/18 12/14/18 12/14/1819 16:00 16:15 16:45 17:00 Temp 98.6 98.6 Pulse 84 80 80 71 Resp 18 18 18 20 B/P (MAP) 150/92 (111) 135/85 (102) 135/85 (102) 150/87 (108) Pulse Ox 99 98 98 100 O2 Delivery Room Air Room Air Room Air Room Air 12/14/18 12/14/18 12/14/18 12/14/18 17:30 17:45 18:00 19:00 Pulse 74 80 84 81 Resp 14 20 16 16 B/P (MAP) 145/88 (107) 136/90 (105) 152/87 (108) 151/81 (104) Pulse Ox 100 99 100 98 O2 Delivery Room Air Room Air Room Air Room Air 12/14/18 12/14/18 12/14/18 12/14/18 19:34 19:52 20:00 21:00 Temp 98.6 98.6 Pulse 87 74 Resp 18 22 B/P (MAP) 145/86 (105) 149/85 (106) Pulse Ox 97 97 98 O2 Delivery Room Air Room Air Room Air Room Air 12/14/18 12/14/18 12/14/18 12/15/18 22:00 23:00 23:32 00:00 Temp 99.2 99.2 Pulse 72 82 71 Resp 19 20 22 B/P (MAP) 150/84 (106) 151/85 (107) 144/85 (104) Pulse Ox 98 97 98 O2 Delivery Room Air Room Air Room Air Room Air 12/15/18 12/15/18 12/15/18 12/15/18 01:00 02:00 03:00 03:33 Pulse 74 77 72 Resp 17 19 23 B/P (MAP) 156/82 (106) 137/80 (99) 130/81 (97) Pulse Ox 99 99 97 O2 Delivery Room Air Room Air Room Air Room Air 12/15/18 12/15/18 12/15/18 12/15/18 04:00 05:00 06:00 07:00 Temp 98.4 98.4 Pulse 69 68 66 75 Resp 18 12 14 16 B/P (MAP) 133/71 (91) 139/84 (102) 128/79 (95) 128/79 (95) Pulse Ox 98 98 98 96 O2 Delivery Room Air Room Air Room Air Room Air 12/15/18 12/15/18 12/15/18 12/15/18 07:44 07:55 08:09 09:00 Temp 96.8 96.7 96.8 96.7 Pulse 69 77 Resp 18 18 B/P (MAP) 135/85 (102) 114/60 (78) Pulse Ox 98 98 95 O2 Delivery Room Air Room Air Room Air Room Air 12/15/18 09:11 Pulse 77 B/P (MAP) 114/60 Intake and Output 12/14/18 12/14/18 12/15/18 15:00 23:00 07:00 Intake Total 320 ml 200 ml Output Total 1400 ml Balance -1080 ml 200 ml AD BENNETT III DO Dec 15, 2018 09:51
[2018-12-15] MEDS ORDERED: POTASSIUM CHLORIDE 20 MEQ TABLET.ER. PO ONE (10:15)
--- NOTE | 2018-12-15 11:25 | CARD ---
MR#: [id number] Date of Study: 12/15/2018 Ordering Physician: KENN SALMON, Referring Physician: AD BENNETT Tech: Penelope Thomas RDCS APPROVED REPORT EXAM: Two-dimensional and M-mode echocardiogram with Doppler and color Doppler. Other Information Quality : Good INDICATION STEMI 2D DIMENSIONS RVDd2.7 (2.9-3.5cm)Left Atrium(2D)3.2 (1.6-4.0cm) IVSd1.3 (0.7-1.1cm)Aortic Root(2D)3.6 (2.0-3.7cm) LVDd5.0 (3.9-5.9cm)LVOT Diameter2.2 (1.8-2.4cm) PWd1.6 (0.7-1.1cm)LVDs2.8 (2.5-4.0cm) FS (%) 30.0 %SV88.9 ml LVEF(%)60.0 (>50%) Aortic Valve AoV Peak Tyson.118.9cm/sAoV VTI20.1cm AO Peak GR.5.7mmHgLVOT VTI 20.55cm AO Mean GR.3mmHgAVA (VTI)4.00cm2 Mitral Valve MV E Slpgkrdt24.5cm/sMV DECEL [id number] MV A Xdxqicdc99.2cm/sE/A Ratio1.1 TDI Lateral E' P. V5.79cm/sMedial E' P. V7.85cm/s E/Lateral E'13.0E/Medial E'9.6 Tricuspid Valve TR P. Ujctbnwg461rd/sRAP YLUMOESM7wxNl TR Peak Gr.71qiYaAQCC62odMz Pulmonary Vein S1 Gdpnmqkv97.9cm/sS2 Wrphxhvf92.45cm/s D2 Jfzdltlv88.4cm/s LEFT VENTRICLE The left ventricle is normal size. There is mild to moderate concentric left ventricular hypertrophy. The left ventricular systolic function is low normal. EF 50%. The mid to distal septum, apex and dis christian anterior wall appear to be moderate to severely hypokinetic. Transmitral Doppler flow pattern is Grade I-abnormal relaxation pattern. RIGHT VENTRICLE The right ventricle is normal size. There is normal right ventricular wall thickness. The right ventr icular systolic function is normal. ATRIA The left atrium size is normal. The right atrium size is normal. The interatrial septum is intact wit h no evidence for an atrial septal defect or patent foramen ovale as noted on 2-D or Doppler imaging. AORTIC VALVE The aortic valve is normal in structure and function. Doppler and Color Flow revealed no significant aortic regurgitation. There is no significant aortic valvular stenosis. MITRAL VALVE The mitral valve is normal in structure and function. There is no evidence of mitral valve prolapse. There is no mitral valve stenosis. Doppler and Color Flow revealed no mitral valve regurgitation note d. TRICUSPID VALVE The tricuspid valve is normal in structure and function. Doppler and Color Flow revealed physiologica l tricuspid regurgitation.There is mild pulmonary hypertension.The PA pressure was estimated at 35 mm Hg. There is no tricuspid valve stenosis. PULMONIC VALVE The pulmonic valve is not well visualized. Doppler and Color Flow revealed trace pulmonic valvular re gurgitation. There is no pulmonic valvular stenosis. GREAT VESSELS The aortic root is normal in size. The ascending aorta is not well seen. The IVC is normal in size an d collapses >50% with inspiration. PERICARDIAL EFFUSION There is no evidence of significant pericardial effusion. Critical Notification Critical Value: No <Conclusion> The mid to distal septum, apex and distal anterior wall appear to be moderate to severely hypokinetic . Doppler and Color Flow revealed physiological tricuspid regurgitation.There is mild pulmonary hyperte nsion.The PA pressure was estimated at 35 mmHg. The left ventricular systolic function is low normal. EF 50%. Signed by : Kenn Salmon, Electronically Approved : 12/15/2018 11:25:06
--- NOTE | 2018-12-15 13:29 | NUR ---
SS following for discharge planning. SS reviewed pt chart. Pt is from home with spouse and is currently on room air. No discharge needs noted at this time. SS will continue to follow for pending discharge needs.
--- NOTE | 2018-12-15 17:30 | NUR ---
Patient transferred from ICU to room 211 at 1730. Patient stable, A&OX4, no complaints of pain. R groin dressing CDI, site is soft. Family at bedside. Will continue to monitor.
[2018-12-15] MEDS: ATORVASTATIN CALCIUM 40 MG TABLET. PO SCH (19:47)
[2018-12-16 03:05] VITALS: BP 145/91
[2018-12-16] MEDS: IPRATRPIUM/ALBUTEROL 0.5/2.5MG 3 ML NEBU. NEB SCH ×2 (06:13→11:42)
[2018-12-16 07:31] VITALS: BP 133/76
[2018-12-16] MEDS: ASPIRIN ENTERIC COATED 81 MG TABLET.DR. PO SCH (08:28)
[2018-12-16] MEDS: METOPROLOL TART IMMED RELEASE 25 MG TABLET. PO SCH (08:28)
[2018-12-16] MEDS: PRASUGREL 10 MG TABLET. PO SCH (08:28)
[2018-12-16] MEDS ORDERED: LISINOPRIL 5 MG TABLET. PO SCH (09:00)
[2018-12-16 10:54] VITALS: BP 149/84
--- NOTE | 2018-12-16 11:32 | PDOC ---
CARDIO Progress Notes Date and Time Date of Service 12/16/2018 Time of Evaluation 1120 Subjective Subjective: No Chest Pain, No shortness of breath, No Palpitations Vitals Vitals Vital Signs Date Time Temp Pulse Resp B/P (MAP) Pulse Ox O2 Delivery O2 Flow Rate FiO2 12/16/18 10:54 97.8 57 20 149/84 (105) 100 Room Air 97.8 Weight Weight [ ] Input and Output Intake and Output Intake and Output 12/16/18 06:59 Intake Total 1720 ml Balance 1720 ml Intake Oral 1720 ml # Voids 2 # Bowel Movements 1 Physical Exam HEENT: Neck Supple W Full Motion Chest: Symmetric LUNGS: Clear to Auscultation Heart: S1S2, RRR (SR) Abdomen: Soft N/T Extremities: No Edema, No Calf Tenderness Neurology: alert, oriented, follow commands Assessment Assessment 1. Anterolateral STEMI: S/P PCI/ALVARO to LAD/LCx. EF at 50% per TTE 2. Arrhythmia: asymptomatic bursts of NSVT and narrow complex, none further overnight 3. HTN: controlled 4. HLP 5. Obesity Recommendations 1. ASA, prasugrel, lipitor 2. Continue BB/lisinopril 3. Dietitian consult. wt loss. 4. Follow up with Dr. Bocanegra on 01/13 1030. Encouraged cardiac rehab ZACK FOOTE APRN Dec 16, 2018 11:32
[2018-12-16] MEDS ORDERED: PRAS10TA9 PO (12:20)
[2018-12-16] MEDS ORDERED: LISI-338 PO (12:20)
[2018-12-16] MEDS ORDERED: METO25TA4 PO (12:21)
[2018-12-16] MEDS ORDERED: ATOR40TA PO (12:21)
[2018-12-16] MEDS ORDERED: ASPI-612 PO (12:22)
--- NOTE | 2018-12-16 12:51 | PDOC ---
PROGRESS NOTES Chief Complaint Chief Complaint Acute myocardial infarction s/p stent in left anterior descending and circumflex Hypokalemia Angina HTN CAD History of Present Illness History of Present Illness Mr. Vega presented with chest pain, had two stents placed. Pt was seen and examined today. He has no new complaints. Discussed with who is bedside. Discussed return to work activity limitations. Pt was happy to be discharged today if possible Vitals Vitals Vital Signs Date Time Temp Pulse Resp B/P (MAP) Pulse Ox O2 Delivery O2 Flow Rate FiO2 12/16/18 11:42 Room Air 12/16/18 10:54 97.8 57 20 149/84 (105) 100 97.8 Physical Exam General: Alert, Oriented X3, No acute distress Heart: Regular rate, No murmurs Lungs: Clear Abdomen: Normal bowel sounds, No tenderness Extremities: No clubbing, No cyanosis, No edema Skin: No rashes, No significant lesion Review of Systems Review of Systems Pt denies CP, SOB, headache, N/V/D Assessment and Plan Assessmemt and Plan Assessment Acute myocardial infarction s/p stent in left anterior descending and circumflex Hypokalemia Angina HTN CAD Plan Discharge today if cardiology agrees Continue cardiac diet Appreciate Cardiology input Continue home meds Recheck labs if here tomorrow Continue statin, aspirin, prasugrel per Cardiology Comment Review of Relevant I have reviewed the following items josee (where applicable) has been applied. Labs Laboratory Tests Test 12/14/18 13:10 12/14/18 15:11 12/15/18 04:30 White Blood Count 6.1 x10^3/uL (4.0-11.0) Red Blood Count 5.20 x10^6/uL (4.30-5.70) Hemoglobin 15.4 g/dL (13.0-17.5) Hematocrit 46.0 % (39.0-53.0) Mean Corpuscular Volume 89 fL (79-100) Mean Corpuscular Hemoglobin 30 pg (25-35) Mean Corpuscular Hemoglobin Concent 33 g/dL (31-37) Red Cell Distribution Width 14.4 % (11.5-14.5) Platelet Count 189 x10^3/uL (140-400) Neutrophils (%) (Auto) 46 % (31-73) Lymphocytes (%) (Auto) 46 % (24-48) Monocytes (%) (Auto) 7 % (0-9) Eosinophils (%) (Auto) 1 % (0-3) Basophils (%) (Auto) 0 % (0-3) Neutrophils # (Auto) 2.8 x10^3uL (1.8-7.7) Lymphocytes # (Auto) 2.8 x10^3/uL (1.0-4.8) Monocytes # (Auto) 0.4 x10^3/uL (0.0-1.1) Eosinophils # (Auto) 0.1 x10^3/uL (0.0-0.7) Basophils # (Auto) 0.0 x10^3/uL (0.0-0.2) Prothrombin Time 12.6 SEC (11.7-14.0) Prothromb Time International Ratio 1.0 (0.8-1.1) Sodium Level 145 mmol/L (136-145) 141 mmol/L (136-145) Potassium Level 3.4 mmol/L (3.5-5.1) 3.1 mmol/L (3.5-5.1) Chloride Level 103 mmol/L (98-107) 102 mmol/L (98-107) Carbon Dioxide Level 30 mmol/L (21-32) 26 mmol/L (21-32) Anion Gap 12 (6-14) 13 (6-14) Blood Urea Nitrogen 20 mg/dL (8-26) 14 mg/dL (8-26) Creatinine 1.3 mg/dL (0.7-1.3) 0.9 mg/dL (0.7-1.3) Estimated GFR (Cockcroft-Gault) 69.3 106.0 BUN/Creatinine Ratio 15 (6-20) Glucose Level 214 mg/dL (70-99) 141 mg/dL (70-99) Calcium Level 9.2 mg/dL (8.5-10.1) 8.6 mg/dL (8.5-10.1) Magnesium Level 2.2 mg/dL (1.8-2.4) 2.3 mg/dL (1.8-2.4) Total Bilirubin 0.6 mg/dL (0.2-1.0) Aspartate Amino Transf (AST/SGOT) 21 U/L (15-37) Alanine Aminotransferase (ALT/SGPT) 35 U/L (16-63) Alkaline Phosphatase 96 U/L (46-116) Creatine Kinase 364 U/L (39-308) Creatine Kinase MB (Mass) 6.3 ng/mL (0.0-3.6) Creatine Kinase MB Relative Index 1.7 % (0-4) Troponin I Quantitative 0.081 ng/mL (0.000-0.055) BS-Ktq-B-Type Natriuretic Peptide 27 pg/mL (0-124) Total Protein 7.8 g/dL (6.4-8.2) Albumin 4.0 g/dL (3.4-5.0) Albumin/Globulin Ratio 1.1 (1.0-1.7) Nasal Screen MRSA (PCR) Negative (Negative) Triglycerides Level 42 mg/dL (0-150) Cholesterol Level 211 mg/dL (0-200) LDL Cholesterol, Calculated 148 mg/dL (0-100) VLDL Cholesterol, Calculated 8 mg/dL (0-40) Non-HDL Cholesterol Calculated 156 mg/dL (0-129) HDL Cholesterol 55 mg/dL (40-60) Cholesterol/HDL Ratio 3.8 Thyroid Stimulating Hormone (TSH) 0.860 uIU/mL (0.358-3.74) Medications Current Medications Midazolam HCl (Versed) 2 mg STK-MED ONCE .ROUTE ; Start 12/14/18 at 13:22; Stop 12/14/18 at 13:23; Status DC Tirofiban/Sodium Chloride 100 ml @ As Directed STK-MED ONCE IV ; Start 12/14/18 at 13:34; Stop 12/14/18 at 13:35; Status DC Nitroglycerin (Nitroglycerin) 200 mcg 1X ONCE IART Last administered on at 14:18; Start 12/14/18 at 13:45; Stop 12/14/18 at 13:50; Status DC Heparin Sodium/ Sodium Chloride (HEPARIN for ARTERIAL LINE FLUSH) 1,000 unit 1X ONCE IART Last administered on 12/14/18at 14:18; Start 12/14/18 at 13:45; Stop 12/14/18 at 13:50; Status DC Heparin Sodium/ Sodium Chloride (HEPARIN for ARTERIAL LINE FLUSH) 1,000 unit 1X ONCE IART Last administered on 12/14/18at 14:18; Start 12/14/18 at 13:45; Stop 12/14/18 at 13:50; Status DC Midazolam HCl (Versed) 2 mg 1X ONCE IV Last administered on 12/14/18 14:17; Start 12/14/18 at 13:45; Stop 12/14/18 at 13:50; Status DC Fentanyl Citrate (Fentanyl 2ml Vial) 100 mcg 1X ONCE IV Last administered on 14:17; Start 12/14/18 at 13:45; Stop 12/14/18 at 13:50; Status DC Iodixanol (Visipaque 320) 100 ml 1X ONCE IART Last administered on 12/14/18 14 :18; Start 12/14/18 at 13:45; Stop 12/14/18 at 13:50; Status DC Heparin Sodium (Porcine) (Heparin Sodium) 8,000 unit 1X ONCE IV Last administered on 12/14/18 14:19; Start 12/14/18 at 13:24; Stop 12/14/18 at 13:50; Status DC Lidocaine HCl (Lidocaine 1% 20ml Vial) 20 ml 1X ONCE INJ Last administered on 12/14/18 14:19; Start 12/14/18 at 13:45; Stop 12/14/18 at 13:50; Status DC Tirofiban/Sodium Chloride 100 ml @ 0 mls/hr CONT PRN IV PER PROTOCOL Last administered on 12/14/18 14:17; Start 12/14/18 at 13:38; Stop 12/15/18 at 07:37; Status DC Prasugrel (Effient) 10 mg STK-MED ONCE .ROUTE ; Start 12/14/18 at 13:49; Stop 12/14/18 at 13:50; Status DC Prasugrel (Effient) 10 mg STK-MED ONCE .ROUTE ; Start 12/14/18 at 13:49; Stop 12/14/18 at 13:50; Status DC Prasugrel (Effient) 60 mg 1X ONCE PO Last administered on 12/14/18at 14:00; Start 12/14/18 at 14:00; Stop 12/14/18 at 14:01; Status DC Info (CONTRAST GIVEN -- Rx MONITORING) 1 each PRN DAILY PRN MC SEE COMMENTS; Start 12/14/18 at 14:45; Stop 12/16/18 at 14:44 Iodixanol (Visipaque 320) 100 ml STK-MED ONCE .ROUTE ; Start 12/14/18 at 14:42; Stop 12/14/18 at 14:43; Status DC Lidocaine HCl (Lidocaine 1% 20ml Vial) 20 ml STK-MED ONCE .ROUTE ; Start at 14:42; Stop 12/14/18 at 14:43; Status DC Heparin Sodium/ Sodium Chloride 1,000 ml @ As Directed STK-MED ONCE .ROUTE ; Start 12/14/18 at 14:42; Stop 12/14/18 at 14:43; Status DC Aspirin (Ecotrin) 81 mg DAILYWBKFT PO Last administered on 12/16/18 08:28; Start 12/15/18 at 08:00 Prasugrel (Effient) 10 mg DAILYWBKFT PO Last administered on 12/16/18 08:28; Start 12/15/18 at 08:00 Atorvastatin Calcium (Lipitor) 40 mg QHS PO Last administered on 12/15/18 19:47 ; Start 12/14/18 at 21:00 Metoprolol Tartrate (Lopressor) 25 mg BID PO Last administered on 12/16/18 08: 28; Start 12/15/18 at 09:00 Albuterol/ Ipratropium (Duoneb) 3 ml Q4H NEB ; Start 12/14/18 at 17:00; Stop 12/14 at 17:32; Status DC Albuterol/ Ipratropium (Duoneb) 3 ml RTQID NEB Last administered on 12/16/18 11 :42; Start 12/14/18 at 20:00 Potassium Chloride (Klor-Con) 40 meq 1X ONCE PO Last administered on 12/15/18 12:09; Start 12/15/18 at 10:15; Stop 12/15/18 at 10:16; Status DC Lisinopril (Prinivil) 5 mg DAILY PO Last administered on 12/16/18 08:29; Start 12/16/18 at 09:00 Active Scripts Active Reported Aspirin Ec (Aspirin) 81 Mg Tablet.dr 1 Tab PO DAILY Metoprolol Tartrate 25 Mg Tablet 25 Mg PO BID Lipitor (Atorvastatin Calcium) 40 Mg Tablet 40 Mg PO HS Lisinopril 5 Mg Tablet 1 Tab PO DAILY Effient (Prasugrel Hcl) 10 Mg Tablet 1 Tab PO DAILY Vitals/I & O Vital Sign - Last 24 Hours 12/15/18 12/15/18 12/15/18 12/15/18 12:51 16:00 17:40 19:20 Temp 98.2 97.9 98.2 97.9 Pulse 74 62 Resp 18 18 B/P (MAP) 135/62 (86) 130/72 (91) Pulse Ox 98 97 98 O2 Delivery Room Air Room Air Room Air Room Air 12/15/18 12/15/18 12/15/18 12/15/18 19:48 20:00 20:56 23:10 Temp 98.0 98.0 Pulse 74 82 Resp 18 B/P (MAP) 135/62 111/58 (75) Pulse Ox 99 99 O2 Delivery Room Air Room Air Room Air 12/16/18 12/16/18 12/16/18 12/16/18 03:05 07:31 08:00 08:28 Temp 97.9 98.8 97.9 98.8 Pulse 56 72 72 Resp 20 20 B/P (MAP) 145/91 (109) 133/76 (95) 133/76 Pulse Ox 99 98 O2 Delivery Room Air Room Air Room Air 12/16/18 12/16/18 12/16/18 08:29 10:54 11:42 Temp 97.8 97.8 Pulse 72 57 Resp 20 B/P (MAP) 133/76 149/84 (105) Pulse Ox 100 O2 Delivery Room Air Room Air Intake and Output 12/15/18 12/15/18 12/16/18 15:00 23:00 07:00 Intake Total 600 ml 240 ml 880 ml Balance 600 ml 240 ml 880 ml AD BENNETT III DO Dec 16, 2018 12:51
--- NOTE | 2018-12-16 22:15 | DS ---
DATE OF DISCHARGE: 12/16/2018 ADMISSION DIAGNOSIS: Acute myocardial infarction. DISCHARGE DIAGNOSIS: Post procedure cardiac catheterization with 2 stents, one to the LAD, one to the circumflex. HOSPITAL COURSE: The patient is a pleasant 53-year-old male who presented with acute myocardial infarction. He was taken emergently to the [facility] where he underwent coronary angioplasty with stents, one to the LAD and one to the circumflex. Post-procedure, he was doing well. This morning I saw and examined him, he looked great. We plan to discharge with close outpatient followup. DISPOSITION: Home. ACTIVITY: As tolerated. DIET: Low sodium. MEDICATIONS: Please see MRAD. TOTAL TIME ON DISCHARGE: 38 minutes. AD BENNETT DO DR: JERRI/sarah JOB#: [id number] / [id number]
== END 2018-12-16 13:00 | disposition home or self-care (01) | DRG 247 ==
LOC: ER 13:05 → 1 WEST ICU 13:11 → 2 NORTH 12-15 17:30
PROVIDERS: ADMIT Internal Medicine; ATTEND Internal Medicine
PROC: 027135Z Dilation of Coronary Artery, Two Arteries with Two Drug-eluting Intraluminal Devices, Percutaneous Approach (ICD-10-PCS; principal; 2018-12-14)
PROC: 4A023N7 Measurement of Cardiac Sampling and Pressure, Left Heart, Percutaneous Approach (ICD-10-PCS; 2018-12-14)
PROC: B2111ZZ Fluoroscopy of Multiple Coronary Arteries using Low Osmolar Contrast (ICD-10-PCS; 2018-12-14)
DX: I21.09 ST elevation (STEMI) myocardial infarction involving other coronary artery of anterior wall (principal); I47.2 Ventricular tachycardia; E66.9 Obesity, unspecified; E78.5 Hyperlipidemia, unspecified; E87.6 Hypokalemia; F17.290 Nicotine dependence, other tobacco product, uncomplicated; I10 Essential (primary) hypertension; I25.119 Atherosclerotic heart disease of native coronary artery with unspecified angina pectoris; Z82.49 Family history of ischemic heart disease and other diseases of the circulatory system; Z95.5 Presence of coronary angioplasty implant and graft; Z68.32 Body mass index [BMI] 32.0-32.9, adult
CPT/HCPCS: 36415; 71045; 80048; 80053; 80061; 82553; 83735; 83880; 84443; 84484; 85025; 85610; 87641; 92941; 93005; 93306; 93458; 94640; 94760; 99152; 99153; C1725; C1760; C1769; C1874; C1887; C1892; G0269; J1644; J2250; J3010; J3490; J7620; Q9967; 99291-25; C1771; J3246

== ENCOUNTER → 2021-04-25 | Outpatient (CLI) | payer OTHER ==
[~2021-04-25] MED LIST: AMLO-186 PO; ASPI-886 PO; ATOR40TA PO; HYDR-2145 PO; LISI-517 PO; METO25TA4 PO; PRAS10TA9 PO
--- NOTE | 2021-04-25 12:57 | CARD ---
MR#: [id number] Date of Study: 04/25/2021 Ordering Physician: KENN SALMON, Referring Physician: KENN SALMON, Tech: Steph Branden, [facility] APPROVED REPORT EXAM: Two-dimensional and M-mode echocardiogram with Doppler and color Doppler. Other Information Quality : AverageHR: 47bpm INDICATION Cardiac Disease: CAD RISK FACTORS Hypertension Hyperlipidemia Diabetes 2D DIMENSIONS Left Atrium(2D)3.7 (1.6-4.0cm)IVSd1.4 (0.7-1.1cm) Aortic Root(2D)3.5 (2.0-3.7cm)LVDd5.6 (3.9-5.9cm) LVOT Diameter2.3 (1.8-2.4cm)PWd1.4 (0.7-1.1cm) LVDs3.8 (2.5-4.0cm)FS (%) 31.6 % SV90.8 mlLVEF(%)58.9 (>50%) Aortic Valve AoV Peak Tyson.94.5cm/sAoV VTI19.5cm AO Peak GR.3.6mmHgLVOT Peak Tyson.65.8cm/s LVOT VTI 16.71cmAO Mean GR.2mmHg ANJUM (VMAX)1.61rl9LWH (VTI)3.41cm2 Mitral Valve MV E Djdvdqdh72.5cm/sMV DECEL [id number] MV A Aeexvyie93.2cm/sMV [id number] E/A Ratio1.4MVA (PHT)2.94cm2 TDI E/Lateral E'6.5E/Medial E'7.4 Pulmonary Valve PV Peak Icuctiba98.3cm/sPV Peak Grad.4mmHg Tricuspid Valve TR P. [id number]/sRAP [id number] TR Peak Gr.60ddIpVPTB57akPp Pulmonary Vein S1 Fxaqujal27.0cm/sD2 Ltfhcycs40.8cm/s PVa [id number] LEFT VENTRICLE The left ventricle is normal size. There is mild to moderate concentric left ventricular hypertrophy. Mid to distal anteroseptal wall and apical wall appear hypokinetic. The ejection fraction is estimat ed at 50%. Transmitral Doppler flow pattern is Grade II-pseudonormal filling dynamics. RIGHT VENTRICLE The right ventricle is borderline dilated. There is normal right ventricular wall thickness. The righ t ventricular systolic function is normal. ATRIA The left atrium size is normal. The right atrium is borderline dilated. The interatrial septum is int act with no evidence for an atrial septal defect or patent foramen ovale as noted on 2-D or Doppler i maging. AORTIC VALVE The aortic valve is normal in structure and function. Doppler and Color Flow revealed trace aortic re gurgitation. There is no significant aortic valvular stenosis. Calculated aortic valve area is 3.84 c m2 with maximum pressure gradient of 4 mmHg and mean pressure gradient of 2 mmHg. MITRAL VALVE The mitral valve is normal in structure and function. There is no evidence of mitral valve prolapse. There is no mitral valve stenosis. Doppler and Color-flow revealed trace mitral regurgitation. TRICUSPID VALVE The tricuspid valve is normal in structure and function. Doppler and Color Flow revealed trace tricus pid regurgitation with an estimated PAP of 36 mmHg. There is no tricuspid valve stenosis. PULMONIC VALVE The pulmonic valve is not well visualized. Doppler and Color Flow revealed no pulmonic valvular regur gitation. GREAT VESSELS The aortic root is normal in size. The IVC is dilated and collapses >50% with inspiration. PERICARDIAL EFFUSION There is no evidence of significant pericardial effusion. Critical Notification Critical Value: No <Conclusion> Technically difficult study. Mid to distal anteroseptal wall and apical wall appear hypokinetic. The ejection fraction is estimated at 50%. Transmitral Doppler flow pattern is Grade II-pseudonormal filling dynamics. Trace mitral regurgitation. Trace tricuspid regurgitation with an estimated PAP of 36 mmHg. There is no evidence of significant pericardial effusion. Signed by : Ned Ceja, Electronically Approved : 04/25/2021 12:57:17
== END ==
LOC: ECHO 07:18
PROVIDERS: ATTEND Internal Medicine Cardiovascular Disease
DX: I51.7 Cardiomegaly (principal); I25.10 Atherosclerotic heart disease of native coronary artery without angina pectoris
CPT/HCPCS: 93306